=== PATIENT | female | born 2000 | race African-American/Black ===

== ENCOUNTER 2023-06-16 19:04 | Emergency (ER) | payer SELFPAY ==
[~2023-06-16] VITALS: Ht 162.6 cm; Wt 103.0 kg
[2023-06-16 19:48] VITALS: BP 122/89; PULSE 100; RESP 18; TEMP 98; O2SAT 97
== END 2023-06-17 01:05 | disposition left against medical advice (07) ==
LOC: ER 19:04
DX: I45.6 Pre-excitation syndrome (principal); J45.909 Unspecified asthma, uncomplicated
CPT/HCPCS: 71045; 93005; 99283

== ENCOUNTER 2024-02-28 16:59 | Emergency (ER) | payer MEDICAID ==
[~2024-02-28] VITALS: Ht 167.6 cm; Wt 104.0 kg
[2024-02-28 17:01] VITALS: O2SAT 99
[2024-02-28] MEDS: ACETAMINOPHEN 325MG TABLET PO ONE (19:27)
[2024-02-28 19:57] LABS: BASOPHILS % 0.5 % (0.0-2.0); EOSINOPHILS % 3.3 % (0.0-5.0); HEMATOCRIT. 37.6 % (36.0-48.0); HEMOGLOBIN. 12.8 g/dL (12.0-16.0); LYMPHOCYTES % 36.1 % (20.0-50.0); MEAN CORPUSCULAR VOLUME 91.2 fL (81.0-99.0); MEAN PLATELET VOLUME 6.9 fl (7.4-10.4); MONOCYTES % 6.7 % (2.0-8.0); NEUTROPHILS % 53.4 % (40.0-76.0); PLATELET 391 x1000/uL (130-400); RED BLOOD CELL COUNT 4.12 mill/uL (4.2-5.4); RED CELL DISTRIBUTION WIDTH 13.5 % (11.6-14.6); WHITE BLOOD COUNT 8.1 x1000/uL (4.5-11.0)
[2024-02-28 20:04] LABS: CHLORIDE 106 mEq/L (98-107); POTASSIUM 4.1 mEq/L (3.5-5.1)
[2024-02-28 20:05] LABS: SODIUM 137 mEq/L (136-145)
[2024-02-28 20:06] LABS: CALCIUM 10.5 mg/dL (8.7-10.4); CARBON DIOXIDE 25 mEq/L (21-32)
[2024-02-28 20:11] LABS: CREATININE 0.7 mg/dL (0.6-1.0); GLUCOSE 89 mg/dL (70-105); UREA NITROGEN BLOOD 7 mg/dL (9-23)
[2024-02-28 20:24] LABS: B-HCG QUANTITATIVE 16041 mIU/mL (<3)
[2024-02-28] MEDS: RHO(D) IMMUNE GLOBULIN 300 MCG/SYR IM ONE (21:20)
[2024-02-28 21:40] VITALS: BP 166/82; PULSE 85; RESP 18; TEMP 36.94740; O2SAT 99
== END 2024-02-28 21:40 | disposition home or self-care (01) ==
LOC: ER 16:59
DX: O03.89 Complete or unspecified spontaneous abortion with other complications (principal); O99.511 Diseases of the respiratory system complicating pregnancy, first trimester; J45.909 Unspecified asthma, uncomplicated; Z3A.01 Less than 8 weeks gestation of pregnancy
CPT/HCPCS: 36415; 76801; 80048; 84702; 85025; 86850; 86900; 90384; 96372; 99285; J2791